=== PATIENT | male | born 1995 ===

== ENCOUNTER 2018-06-07 14:37 | Emergency (ER) | payer OTHER ==
[2018-06-07 14:56] VITALS: BP 114/66
--- NOTE | 2018-06-07 14:58 | UC ---
Skin Complaint HPI - HPI Summary HPI Summary: 23 yo male presents with ?abscess to chin. He tells me that over the last 3 days he has noticed a red swollen area to his chin. He does shave his facial hair and believes this may be an ingrown hair. Has tried to pop it at home, but could not. Denies fever or chills. No hx of MRSA. - History of Current Complaint Chief Complaint: UCSkin Time Seen by Provider: 06/07/18 14:58 Stated Complaint: SKIN COMPLAINT Hx Obtained From: Patient Onset/Duration: Gradual Onset Onset Severity: Mild Current Severity: Mild Pain Intensity: 3 Pain Scale Used: 0-10 Numeric - Allergy/Home Medications Allergies/Adverse Reactions: Allergies Allergy/AdvReac Type Severity Reaction Status Date / Time No Known Allergies Allergy Verified 06/07/18 14:56 PMH/Surg Hx/FS Hx/Imm Hx - Additional Past Medical History Additional PMH: None - Surgical History Surgical History: None - Family History Known Family History: Positive: None - Social History Occupation: Student Lives: With Family Alcohol Use: Rare Substance Use Type: None Smoking Status (MU): Light Every Day Tobacco Smoker Review of Systems All Other Systems Reviewed And Are Negative: Yes Constitutional: Positive: Negative Skin: Positive: Other - ?abscess chin Respiratory: Positive: Negative Cardiovascular: Positive: Negative Neurological: Positive: Negative Psychological: Positive: Negative Physical Exam - Summary Physical Exam Summary: GENERAL: NAD. WDWN. No pain distress. SKIN: Chin with 2.0cm diameter area of mild induration, edema, and erythema. TTP. No active drainage. NECK: Supple. Nontender. No lymphadenopathy. CHEST: No accessory muscle use. Breathing comfortably and in no distress. CV: Pulses intact. Cap refill <2seconds NEURO: Alert. PSYCH: Age appropriate behavior. Triage Information Reviewed: Yes Vital Signs: Initial Vital Signs Temp 98.5 F 06/07/18 14:52 Pulse 74 06/07/18 14:52 Resp 14 06/07/18 14:52 BP 114/66 06/07/18 14:52 Pulse Ox 100 06/07/18 14:52 Vital Signs Reviewed: Yes Procedures - Incision and Drainage Face Anesthesia: Local - Lidocaine 2% Instrument(s): Scalpel - #11 Packing: Other - None Course/Dx - Course Course Of Treatment: The procedure was explained to the pt and all questions were answered. A time out was performed, witnessed, and signed. The area was cleansed with NS. 0.5mL of 2% lidocaine without epi was administered and good anesthetization was achieved. A #11 blade was used to make a 3mm linear vertical incision at the central most part of the abscess. Clear/cloudy fluid was able to be expressed without purulent matter. Hemostasis was achieved and band-aid applied. Pt tolerated well. Suspect sebaceous cyst vs abscess to chin. Will rx for keflex - Diagnoses Provider Diagnosis: Sebaceous cyst Discharge - Sign-Out/Discharge Documenting (check all that apply): Patient Departure All imaging exams completed and their final reports reviewed: No Studies - Discharge Plan Condition: Stable Disposition: HOME Prescriptions: Cephalexin CAP* [Keflex CAP*] 500 mg PO BID #14 cap Patient Education Materials: Cyst (ED) Referrals: No Primary Care Phys,NOPCP [Primary Care Provider] - Additional Instructions: If you develop a fever, shortness of breath, chest pain, new or worsening symptoms - please call your PCP or go to the ED. Apply a bandage to the area until well healed - Billing Disposition and Condition Condition: STABLE Disposition: Home
[2018-06-07] MEDS ORDERED: Lidocaine 2% PF * 5 ML VIAL INJ ONE (15:07)
== END 2018-06-07 15:27 | disposition home or self-care (01) ==
LOC: UCEAST 14:37
DX: L72.3 Sebaceous cyst (principal); F17.200 Nicotine dependence, unspecified, uncomplicated
CPT/HCPCS: 10060; 99202; G0463